=== PATIENT | male | born 1965 | race Caucasian/White ===

== ENCOUNTER → 2017-09-25 | Day surgery (SDC) | payer BC ==
[~2017-09-25] MED LIST: Lactated Ringers 1,000 ML IV SCH; Propofol 200 MG/20 ML SDV IV ONE
[2017-09-25 13:57] VITALS: BP 126/81
--- NOTE | 2017-09-28 08:04 | OR ---
DATE OF OPERATION: 09/25/2017 PREOPERATIVE DIAGNOSIS: FAMILY HISTORY OF COLON CANCER. POSTOPERATIVE DIAGNOSIS: FAMILY HISTORY OF COLON CANCER. SURGEON: Zackary Swanson MD PROCEDURE: FULL-LENGTH COLONOSCOPY. 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 BODY AFTER ALLERGIES: COMPLICATIONS: None. SPECIMEN: None. FINDINGS: Normal full-length colonoscopy. RECOMMENDATIONS: Follow up colonoscopy every 5 years. INDICATIONS: The patient's father has a history of colon cancer. He is due for a 5 year scope. DESCRIPTION OF PROCEDURE: The patient is prepped and draped, placed in the left lateral decubitus position. A lubricated Olympus colonoscope was inserted and easily advanced to the cecum. Direct visualization of the ileocecal valve and appendiceal orifice was accomplished. The bowel prep was excellent. Upon withdrawal, throughout the length of the colon, I could find no signs of polyps, mass, ulceration, or bleeding sites. No vascular abnormalities or signs of colitis. There were no significant diverticula. The rectal vault was unremarkable. Retroflexion of scope in the rectum showed no anal lesions. Air was suctioned, scope removed without complication. KRISHAN/PEPE /[id number]
== END ==
LOC: CC.SDS 12:33
PROVIDERS: ATTEND Family Medicine
DX: Z12.11 Encounter for screening for malignant neoplasm of colon (principal); J01.90 Acute sinusitis, unspecified; M19.90 Unspecified osteoarthritis, unspecified site; N40.0 Benign prostatic hyperplasia without lower urinary tract symptoms; K21.9 Gastro-esophageal reflux disease without esophagitis; E78.5 Hyperlipidemia, unspecified; I10 Essential (primary) hypertension; R59.9 Enlarged lymph nodes, unspecified; L28.0 Lichen simplex chronicus; J02.9 Acute pharyngitis, unspecified; E04.1 Nontoxic single thyroid nodule; Z80.0 Family history of malignant neoplasm of digestive organs
CPT/HCPCS: J2704

== ENCOUNTER 2018-10-17 21:36 | Emergency (ER) | payer BC ==
[2018-10-17 21:43] VITALS: BP 160/84
--- NOTE | 2018-10-17 21:50 | EDM.PDOC ---
ED HPI GENERAL MEDICAL PROBLEM - General Chief Complaint: Lower Extremity Injury/Pain Stated Complaint: ankle injury Time Seen by Provider: 10/17/18 21:42 Source of Information: Reports: Patient, Family History Limitations: Reports: No Limitations - History of Present Illness INITIAL COMMENTS - FREE TEXT/NARRATIVE: in with c/o slipped and fell at home just prior to arrival and has pain and swelling in the left ankle, no tib/fib pain, no knee pain, no hip/back or neck pain, no numbness or tingling. 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 [No Known Home Meds] 12/07/15 [History] Past Medical History - Past Health History Medical/Surgical History: Denies Medical/Surgical History Review of Systems - Review of Systems Review Of Systems: See Below Constitutional: Reports: No Symptoms Respiratory: Reports: No Symptoms GI/Abdominal: Reports: No Symptoms Genitourinary: Reports: No Symptoms Musculoskeletal: Reports: Joint Pain (left ankle pain). Denies: Neck Pain, Shoulder Pain, Back Pain Skin: Reports: No Symptoms Neurological: Reports: No Symptoms. Denies: Numbness, Tingling Psychiatric: Reports: No Symptoms ED EXAM, GENERAL - Physical Exam Exam: See Below Exam Limited By: No Limitations General Appearance: Alert, WD/WN, No Apparent Distress Head: Atraumatic, Normocephalic Neck: Normal Inspection, Supple, Non-Tender, Full Range of Motion Respiratory/Chest: No Respiratory Distress, Lungs Clear, Normal Breath Sounds Cardiovascular: Normal Peripheral Pulses, Regular Rate, Rhythm, No Edema, No Murmur Peripheral Pulses: 2+: Posterior Tibial (L), Dorsalis Pedis (L) GI/Abdominal: Soft, Non-Tender Back Exam: Normal Inspection, Full Range of Motion Extremities: Normal Range of Motion, Normal Capillary Refill, Joint Swelling ( left ankle). No: Normal Inspection Neurological: Alert, Oriented, Normal Cognition. No: Normal Gait (secondary to pain) Psychiatric: Normal Affect, Normal Mood Skin Exam: Warm, Dry, Intact, Normal Color Course - Vital Signs Text/Narrative:: xray left ankle is neg for fx or dislocation, will place an air cast/splint on his left ankle and will have pt follow RICE protocol procedure: ankle air splint placed to the left ankle by the nurse, distal PMS intack before and after application as assessed by this aligner typewriter. the pt will f/u with pcp this week Last Recorded V/S: Last Vital Signs Temp 36.7 C 10/17/18 21:40 Pulse 97 10/17/18 21:40 Resp 16 10/17/18 21:40 BP 160/84 H 10/17/18 21:40 Pulse Ox 96 10/17/18 21:40 - Orders/Labs/Meds Orders: Active Orders 24 hr Category Date Time Status Ankle Min 3V Lt [CR] Stat Exams 10/17/18 21:45 Ordered Departure - Departure Time of Disposition: 21:57 Disposition: Home, Self-Care 01 Condition: Good Clinical Impression: Sprain of left ankle - Discharge Information *PRESCRIPTION DRUG MONITORING PROGRAM REVIEWED*: Not Applicable *COPY OF PRESCRIPTION DRUG MONITORING REPORT IN PATIENT BARON: Not Applicable Instructions: How to Use a Stirrup Ankle Brace, [id number], Ankle Sprain, [id number] Forms: ED Department Discharge Additional Instructions: elevate left foot/ankle on two pillows ice off and on frequently for 2 days alternate tylenol and motrin as needed for pain follow up with your family doctor this week return to the ED as needed - Problem List & Annotations (1) Sprain of left ankle SNOMED Code(s): 30904304, [id number] Code(s): S93.402A - SPRAIN OF UNSPECIFIED LIGAMENT OF LEFT ANKLE, INIT ENCNTR Status: Acute Priority: Medium Qualifiers: Encounter type: initial encounter - Problem List Review Problem List Initiated/Reviewed/Updated: Yes - My Orders Last 24 Hours: My Active Orders 10/17/18 21:45 Ankle Min 3V Lt [CR] Stat - Assessment/Plan Last 24 Hours: My Active Orders 10/17/18 21:45 Ankle Min 3V Lt [CR] Stat Plan: as above
== END 2018-10-17 22:05 | disposition home or self-care (01) ==
LOC: CC.ED 21:36
DX: S93.402A Sprain of unspecified ligament of left ankle, initial encounter (principal); W01.0XXA Fall on same level from slipping, tripping and stumbling without subsequent striking against object, initial encounter
CPT/HCPCS: 73610-LT; 99283

== ENCOUNTER → 2021-11-15 | Day surgery (SDC) | payer BC ==
[~2021-11-15] MED LIST changes: +Lidocaine 2% 5 ML SDV ONE; +Phenylephrine 1% 10 MG/ML SDV ONE; -Propofol 200 MG/20 ML SDV IV ONE; +Propofol 200 MG/20 ML SDV ONE; +fentaNYL 100 MCG/2 ML SDV ONE
[2021-11-15 12:15] VITALS: BP 108/71; PULSE 67
== END ==
LOC: CC.SDS 09:46
PROVIDERS: ATTEND Family Medicine
DX: Z12.11 Encounter for screening for malignant neoplasm of colon (principal); K63.5 Polyp of colon; K29.50 Unspecified chronic gastritis without bleeding; K20.90 Esophagitis, unspecified without bleeding; K25.9 Gastric ulcer, unspecified as acute or chronic, without hemorrhage or perforation; K29.70 Gastritis, unspecified, without bleeding; K21.9 Gastro-esophageal reflux disease without esophagitis; E78.5 Hyperlipidemia, unspecified; N40.0 Benign prostatic hyperplasia without lower urinary tract symptoms; I10 Essential (primary) hypertension; Z80.0 Family history of malignant neoplasm of digestive organs; Z98.890 Other specified postprocedural states
CPT/HCPCS: 00813; 87081; J2370; J2704; J3010; J7120

== ENCOUNTER 2021-12-19 14:03 | Emergency (ER) | payer BC ==
[2021-12-19] MEDS: Ketorolac 30 MG/ML SDV IVPUSH ONE (14:17)
[2021-12-19] MEDS: Aspirin 81 MG Tab.Chew PO ONE (14:20)
[2021-12-19 14:25] VITALS: BP 131/89
[2021-12-19 14:29] LABS: CHLORIDE,CL 102 mEq/L (98-106); SODIUM,NA 140 mEq/L (136-145)
[2021-12-19 14:30] LABS: PTT,PARTIAL THROMBOPLSTIN TIME 24.4 SEC (23.2-32.3)
[2021-12-19] MEDS: Alum Hydrox/Mag Hydrox/Simeth 30 ML, Lidocaine 2% 15 ML PO ONE ×2 (14:33)
[2021-12-19 14:43] VITALS: PULSE 74
[2021-12-19] MEDS: Orphenadrine 60 MG/2 ML Inj IV ONE (14:51)
== END 2021-12-19 15:18 | disposition home or self-care (01) ==
LOC: CC.ED 14:03
DX: R07.89 Other chest pain (principal); Z79.899 Other long term (current) drug therapy
CPT/HCPCS: 36415; 71045; 80053; 82550; 83615; 83690; 83735; 84484; 85025; 85610; 85730; 93005; 96374; 96375; 99284; 99285-25; A9270-GY; J1885; J2360